=== PATIENT | male | born 1980 | race Caucasian/White ===

== ENCOUNTER 2017-04-02 20:47 | Emergency (ER) | payer SELFPAY ==
[~2017-04-02] VITALS: Ht 175.3 cm; Wt 129.3 kg
[2017-04-02 22:17] VITALS: BP 116/66
== END 2017-04-02 22:17 | disposition home or self-care (01) ==
LOC: ED 20:47
DX: S29.011A Strain of muscle and tendon of front wall of thorax, initial encounter (principal); Y93.44 Activity, trampolining; Y93.89 Activity, other specified; Y92.830 Public park as the place of occurrence of the external cause; Y99.8 Other external cause status

== ENCOUNTER 2017-04-04 22:01 | Emergency (ER) | payer SELFPAY | END 2017-04-04 22:59 | disposition left against medical advice (07) | LOC: ED 22:01 | DX: R00.2 Palpitations (principal); R06.00 Dyspnea, unspecified; Z53.21 Procedure and treatment not carried out due to patient leaving prior to being seen by health care provider ==

== ENCOUNTER 2018-04-09 04:56 | Emergency (ER) | payer SELFPAY ==
[~2018-04-09] VITALS: Ht 175.3 cm; Wt 134.3 kg
[2018-04-09 05:03] VITALS: Ht 175.3 cm; Wt 134.3 kg
[2018-04-09 06:36] VITALS: BP 134/80
== END 2018-04-09 06:36 | disposition home or self-care (01) ==
LOC: ED 04:56
DX: M54.5 Low back pain (principal)

== ENCOUNTER 2020-07-01 04:46 | Emergency (ER) | payer SELFPAY ==
[~2020-07-01] VITALS: Ht 175.3 cm; Wt 142.0 kg
[2020-07-01 04:52] VITALS: Ht 175.3 cm; Wt 142.0 kg
[2020-07-01 05:53] VITALS: BP 126/84
== END 2020-07-01 05:53 | disposition home or self-care (01) ==
LOC: ED 04:46
DX: M79.644 Pain in right finger(s) (principal)

== ENCOUNTER 2020-08-27 05:22 | Emergency (ER) | payer SELFPAY ==
[~2020-08-27] VITALS: Ht 175.3 cm; Wt 142.9 kg
[2020-08-27 05:24] VITALS: Ht 175.3 cm; Wt 142.9 kg
[2020-08-27 07:10] VITALS: BP 121/76
== END 2020-08-27 07:10 | disposition home or self-care (01) ==
LOC: ED 05:22
DX: F41.9 Anxiety disorder, unspecified (principal)

== ENCOUNTER 2020-08-28 17:11 | Emergency (ER) | payer MEDICAID, SELFPAY ==
[~2020-08-28] VITALS: Ht 175.3 cm; Wt 142.9 kg
[2020-08-28 17:14] VITALS: BP 146/99; Ht 175.3 cm; Wt 142.9 kg
== END 2020-08-28 20:52 | disposition home or self-care (01) ==
LOC: ED 17:11
DX: B34.9 Viral infection, unspecified (principal)
CPT/HCPCS: 36600

== ENCOUNTER 2020-08-31 16:11 | Emergency (ER) | payer MEDICAID ==
[~2020-08-31] VITALS: Ht 172.7 cm; Wt 133.4 kg
[2020-08-31 16:28] VITALS: BP 128/93; Ht 172.7 cm; Wt 133.4 kg
== END 2020-08-31 18:31 | disposition home or self-care (01) ==
LOC: ED 16:11
DX: Z53.21 Procedure and treatment not carried out due to patient leaving prior to being seen by health care provider (principal)

== ENCOUNTER 2020-09-13 10:08 | Emergency (ER) | payer MEDICAID ==
[~2020-09-13] VITALS: Ht 172.7 cm; Wt 133.4 kg
[2020-09-13 10:09] VITALS: BP 133/91; Ht 172.7 cm; Wt 133.4 kg
== END 2020-09-13 16:12 | disposition left against medical advice (07) ==
LOC: ED 10:08
DX: Z53.21 Procedure and treatment not carried out due to patient leaving prior to being seen by health care provider (principal)
CPT/HCPCS: J7042